=== PATIENT | male | born 1970 | race Native Hawaiian/Other Pacific Islander ===

== ENCOUNTER 2017-06-18 11:00 | Outpatient (CLI) | payer OTHER | END 2017-06-18 12:00 | disposition home or self-care (01) | LOC: RAD 11:00 | DX: M25.561 Pain in right knee (principal) ==

== ENCOUNTER 2019-02-01 14:10 | Outpatient (CLI) | payer BC | END 2019-02-01 23:05 | disposition home or self-care (01) | LOC: RAD 14:10 | DX: M25.511 Pain in right shoulder (principal); M25.512 Pain in left shoulder ==

== ENCOUNTER 2019-08-17 11:12 | Outpatient (CLI) | payer BC | END 2019-08-17 19:01 | disposition home or self-care (01) | LOC: MRI 11:12 | DX: M25.511 Pain in right shoulder (principal); M25.512 Pain in left shoulder ==

== ENCOUNTER 2023-12-15 14:32 | Outpatient (CLI) | payer BC | END 2023-12-15 19:23 | disposition home or self-care (01) | LOC: US 14:32 → CT 14:32 → US 19:23 | PROVIDERS: ATTEND Nurse Practitioner | DX: M79.662 Pain in left lower leg (principal); R10.2 Pelvic and perineal pain ==